=== PATIENT | male | born 1965 | race Caucasian/White ===

== ENCOUNTER 2022-08-20 13:16 | Outpatient (REF) | payer OTHER, SELFPAY ==
[2022-08-20 13:42] LABS: MANUAL DIFF FLAG NO
[2022-08-20 14:37] LABS: Basophils Absolute Auto 0.1 X10*3/uL (0.0-0.2); Basophils Percent Auto 0.7 % (0-2); Eosinophils Absolute Auto 0.4 X10*3/uL (0.0-0.4); Eosinophils Percent Auto 5.5 % (0-4); Hematocrit 41.1 % (42.0-52.0); Hemoglobin 13.9 g/dl (14.0-18.0); Imm Gran Abs Auto 0.02 X10*3/uL (0.00-0.03); Imm Gran Pct Auto 0.3 % (0.0-0.4); Lymphocytes Percent Auto 39.4 % (20-40); Mean Corpuscular HGB Conc 33.8 g/dl (31.0-36.0); Mean Corpuscular Volume 94.7 fL (80.0-98.0); Mean Platelet Volume 9.6 fL (9.4-12.4); Monocytes Absolute Auto 0.8 X10*3/uL (0.1-1.2); Monocytes Percent Auto 10.4 % (2-11); Neutrophils Absolute Auto 3.3 x10*3/uL (2.0-8.3); Neutrophils Percent Auto 43.7 % (45-73); Platelet Count 213 X10*3/uL (160-400); Red Blood Count 4.34 X10*6/uL (4.60-5.80); Red Cell Distribution Width 12.2 % (11.0-16.0); White Blood Count 7.6 X10*3/uL (4.8-10.8)
[2022-08-20 15:11] LABS: Alanine Aminotransferase 23 U/L (0-40); Albumin Level 4.5 g/dL (3.5-5.0); Alkaline Phosphatase 66 U/L (39-117); Anion Gap 16 (12-20); Aspartate Amino Transferase 27 U/L (5-37); Bilirubin Total 1.4 mg/dL (0.0-1.0); Blood Urea Nitrogen 14 mg/dL (9-16); Calcium 9.3 mg/dL (8.4-10.2); Carbon Dioxide 27 mmol/L (22-29); Chloride 99 mmol/L (96-108); Cholesterol 252 mg/dL; Estimated Glomerular Filt Rate > 60; Glucose Fasting 94 mg/dL (60-99); HDL Cholesterol 90 mg/dL; LDL Cholesterol Calculated 135 mg/dl; Potassium 4.7 mmol/L (3.3-5.1); Sodium 137 mmol/L (135-145); Total Protein 7.5 g/dL (6.5-8.0); Triglycerides 137 mg/dL
[2022-08-20 15:29] LABS: Prostate Specific Antigen Scr 0.31 ng/mL (<0.05-4.0)
== END 2022-08-20 13:17 | disposition home or self-care (01) ==
LOC: HO.LAB 13:16
PROVIDERS: PCP Internal Medicine; Visit Provider Internal Medicine
DX: Z00.00 Encounter for general adult medical examination without abnormal findings (principal); Z12.5 Encounter for screening for malignant neoplasm of prostate
CPT/HCPCS: 36415; 80053; 80061; 84153; 85025

== ENCOUNTER 2023-09-04 15:35 | Emergency (ER) | payer OTHER, SELFPAY ==
--- NOTE | ~2023-09-04 | XR_ITS ---
EXAMINATION: XR CHEST CLINICAL INFORMATION: Question pneumonia. COMPARISON: None available. TECHNIQUE: Frontal view of the chest was obtained. FINDINGS: No significant abnormality is noted involving the heart, lungs, mediastinum, bony thorax or soft tissues. XR/XR chest 1V IMPRESSION: Unremarkable examination.
[2023-09-04 15:39] VITALS: BP 155/77; PULSE 71; RESP 18; TEMP 36.4; O2SAT 99; BMI 28.8
--- NOTE | 2023-09-04 15:44 | ECG_ITS ---
Test Reason : LEFT ARM PAIN Blood Pressure : / mmHG Vent. Rate : 062 BPM Atrial Rate : 062 BPM P-R Int : 172 ms QRS Dur : 084 ms QT Int : 408 ms P-R-T Axes : 022 005 031 degrees QTc Int : 414 ms Normal sinus rhythm Normal ECG No previous ECGs available Referred By: Jet Sidhu Electronically Signed By:GHAZALA PAINTING MD
--- NOTE | 2023-09-04 15:49 | ED_ITS ---
HPI - Chest Pain General Chief Complaint: Chest Pain Stated Complaint: L arm pain/Hx of blockage in heart Time Seen by Provider: 09/04/23 21:58 Source: patient Mode of arrival: ambulatory Limitations: no limitations History of Present Illness HPI narrative: Patient with strong family history of coronary disease patient's tight at the age of 52 comes here as he saw the advertisement and got the coronary CT on 08/27 which showed high calcium score 1188. Since then patient has been having increased anxiety and left arm pain multiple times lasting only for few minutes today also while in the waiting area patient had left arm no chest pain today which did not take his aspirin today. No chest pain at this time patient initial EKG and troponin was negative Related Data Allergies Allergy/AdvReac Type Severity Reaction Status Date / Time No Known Allergies Allergy Verified 09/04/23 15:38 Review of Systems 2 Review of Systems: Yes all other systems are reviewed and are negative [facility] Social History Social History Alcohol intake: current Alcohol intake frequency: a few times a week Smoked in Last 30 Days: No Use of substances other than those prescribed or required for medical reasons: No Advance Directives: No Advance Directives Information Provided: Yes Physical Exam 2 Vital Signs: Vital Signs: Last Vital Signs Temp 97.6 F 09/04/23 21:50 Pulse 55 09/04/23 21:50 Resp 16 09/04/23 21:50 BP 155/96 H 09/04/23 21:50 Pulse Ox 100 09/04/23 21:50 O2 Del Method Room Air 09/04/23 21:50 BMI result Body Mass Index 28.8 Appearance: Alert. Oriented X3. No acute distress. Eyes: PERRLA, No Nystagmus ENT: Pharynx normal. Oral Mucosa moist Neck: Normal inspection. Neck supple. CVS: Normal heart rate and rhythm. Pulses normal. Respiratory: No respiratory distress. Equal air entry bilateral, no wheezing/rales/rhonchi Abdomen: Soft and nontender. Bowel sounds are present, no mass palpable, no CVA tenderness Skin: Skin warm and dry. Normal skin color. Normal skin turgor. Extremities: No lower extremity edema. No calf tenderness Neuro: Oriented X 3. No motor deficit. No sensory deficit.No cerebellar signs , cranial nerves II-XII intact Course Course Course Narrative: RME: 58 yold male presents to the ED for left arm pain. patient denies any chest pain or shortness of breath. Patient denies any leg swelling, calf pain, pleurisy, recent long travel, or recent surgery. Patient had evaluation of testing facility which showed high levels of calcium which puts him at risk for blockage. Patient had Heart SCan. patient presently denies no chest pain. Medications Administered Discontinued Medications Generic Name Dose Route Start Last Admin Trade Name Juan PRN Reason Stop Dose Admin Aspirin 162 mg 09/04/23 22:32 09/04/23 22:46 Aspirin Enteric Coated 81 Mg Tablet.Dr KENT 09/04/23 22:33 162 mg ONCE ONE Administration Medical Decision Making Medical Decision Making [facility] Narrative: Patient atypical chest pain with high calcium score in coronary CT , discharge patient home on aspirin 2 sets of cardiac enzymes negative for ACS advised to follow-up with records manager for further evaluation Differential Diagnosis Differential Diagnoses: The differential diagnosis associated with the presentation includes ACS/atypical chest pain Lab Data [facility] Lab Attestation statement: I reviewed the patient's lab results. 09/04/23 16:03 09/04/23 16:03 Labs: Lab Results 09/04/23 09/04/23 Range/Units 16:03 22:43 WBC 7.7 (4.8-10.8) X10*3/uL RBC 4.41 L (4.60-5.80) X10*6/uL Hgb 14.4 (14.0-18.0) g/dl Hct 42.5 (42.0-52.0) % MCV 96.4 (80.0-98.0) fL MCH 32.7 (27.0-33.0) pg MCHC 33.9 (31.0-36.0) g/dl RDW 11.7 (11.0-16.0) % Plt Count 225 (160-400) X10*3/uL MPV 9.5 (9.4-12.4) fL Immature Gran % (Auto) 0.3 (0.0-0.4) % Neut % (Auto) 56.0 (45-73) % Lymph % (Auto) 34.3 (20-40) % Murray % (Auto) 6.2 (2-11) % Eos % (Auto) 2.5 (0-4) % Baso % (Auto) 0.7 (0-2) % Lymph # (Auto) 2.6 (1.2-4.9) X10*3/uL Murray # (Auto) 0.5 (0.1-1.2) X10*3/uL Eos # (Auto) 0.2 (0.0-0.4) X10*3/uL Baso # (Auto) 0.1 (0.0-0.2) X10*3/uL Abs Immat Gran (auto) 0.02 (0.00-0.03) X10*3/uL Absolute Neuts (auto) 4.3 (2.0-8.3) x10*3/uL Absolute Nucleated RBC 0.000 (0.0-0.012) X10*3/uL Nucleated RBC % (auto) 0.0 (0.0-0.2) /100WBC PT 10.5 L (11.1-13.3) SEC INR 0.9 (0.9-1.1) APTT 34.1 (26.0-36.4) SEC Sodium 139 (135-145) mmol/L Potassium 3.7 D (3.3-5.1) mmol/L Chloride 103 (96-108) mmol/L Carbon Dioxide 25 (22-29) mmol/L Anion Gap 15 (12-20) BUN 17 H (9-16) mg/dL Creatinine 1.14 (0.5-1.4) mg/dL Estim Creat Clear Calc 71.1 Estimated GFR > 60 Random Glucose 113 (60-115) mg/dL Calcium 9.3 (8.4-10.2) mg/dL Total Bilirubin 0.9 (0.0-1.0) mg/dL AST 28 (5-37) U/L ALT 26 (0-40) U/L Alkaline Phosphatase 60 (39-117) U/L Troponin I High Sens < 2.7 < 2.7 (<3.5-35.0) ng/L B-Natriuretic Peptide 37 (<100) pg/mL Total Protein 7.7 (6.5-8.0) g/dL Albumin 4.4 (3.5-5.0) g/dL Independent Interpretation I performed an independent interpretation of an: EKG Interpretation: Normal sinus rhythm heart rate 62 beats per minute normal interval normal axis no acute ST T wave changes no acute ischemia External Record Review External record reviewed: Prior outpatient radiology Discharge Plan Discharge Clinical Impression: Chest pain Patient Disposition: Home, Self-Care Instructions: Chest Pain (ED) Additional Instructions: Follow-up with records manager/PCV further evaluation including cardiac catheterization/stress echo Start taking baby aspirin 81 mg daily Continue take her atorvastatin Report to the ER if recurrence the chest pain Referrals: Dg Garay MD [Physician] - 5 days Interventions: ED Discharge Assessment Last Done: 09/04/23 23:32 Discharge Date/Time: 09/04/23 23:32
[2023-09-04 16:08] LABS: MANUAL DIFF FLAG NO
[2023-09-04 16:09] LABS: Basophils Absolute Auto 0.1 X10*3/uL (0.0-0.2); Basophils Percent Auto 0.7 % (0-2); Eosinophils Absolute Auto 0.2 X10*3/uL (0.0-0.4); Eosinophils Percent Auto 2.5 % (0-4); Hematocrit 42.5 % (42.0-52.0); Hemoglobin 14.4 g/dl (14.0-18.0); Imm Gran Abs Auto 0.02 X10*3/uL (0.00-0.03); Imm Gran Pct Auto 0.3 % (0.0-0.4); Lymphocytes Absolute Auto 2.6 X10*3/uL (1.2-4.9); Lymphocytes Percent Auto 34.3 % (20-40); Mean Corpuscular HGB Conc 33.9 g/dl (31.0-36.0); Mean Corpuscular Hemoglobin 32.7 pg (27.0-33.0); Mean Corpuscular Volume 96.4 fL (80.0-98.0); Mean Platelet Volume 9.5 fL (9.4-12.4); Monocytes Absolute Auto 0.5 X10*3/uL (0.1-1.2); Monocytes Percent Auto 6.2 % (2-11); Neutrophils Absolute Auto 4.3 x10*3/uL (2.0-8.3); Platelet Count 225 X10*3/uL (160-400); Red Blood Count 4.41 X10*6/uL (4.60-5.80); Red Cell Distribution Width 11.7 % (11.0-16.0); White Blood Count 7.7 X10*3/uL (4.8-10.8)
[2023-09-04 16:20] LABS: INTERNATIONAL NORM RATIO 0.9 (0.9-1.1); Prothrombin Time 10.5 SEC (11.1-13.3)
[2023-09-04 16:23] LABS: Partial Thromboplastin Time 34.1 SEC (26.0-36.4)
[2023-09-04 16:29] LABS: Alanine Aminotransferase 26 U/L (0-40); Albumin Level 4.4 g/dL (3.5-5.0); Alkaline Phosphatase 60 U/L (39-117); Anion Gap 15 (12-20); Aspartate Amino Transferase 28 U/L (5-37); Bilirubin Total 0.9 mg/dL (0.0-1.0); Blood Urea Nitrogen 17 mg/dL (9-16); Calcium 9.3 mg/dL (8.4-10.2); Carbon Dioxide 25 mmol/L (22-29); Chloride 103 mmol/L (96-108); Creatinine Clr Calc Pharmacy 71.1; Estimated Glomerular Filt Rate > 60; Glucose Random 113 mg/dL (60-115); Potassium 3.7 mmol/L (3.3-5.1); Sodium 139 mmol/L (135-145); Total Protein 7.7 g/dL (6.5-8.0)
[2023-09-04 16:34] LABS: B Type Natriuretic Peptide 37 pg/mL (<100)
[2023-09-04 16:36] LABS: Troponin-I High Sensitivity < 2.7 ng/L (<3.5-35.0)
[2023-09-04 21:50] VITALS: BP 155/96; PULSE 55; RESP 16; TEMP 36.4; O2SAT 100
[2023-09-04] MEDS: Aspirin Enteric Coated 81 MG TABLET.DR 162 MG PO (22:46)
[2023-09-04 23:10] LABS: Troponin-I High Sensitivity < 2.7 ng/L (<3.5-35.0)
== END 2023-09-04 23:32 | disposition home or self-care (01) ==
PROVIDERS: Physician Assistant; Emergency Provider Internal Medicine; PCP Internal Medicine
DX: R07.89 Other chest pain (principal); M79.602 Pain in left arm; F41.9 Anxiety disorder, unspecified; R06.02 Shortness of breath; Z79.899 Other long term (current) drug therapy
CPT/HCPCS: 36415; 71045; 80053; 83880; 84484; 85025; 85610; 85730; 93005; 99283; 99285

== ENCOUNTER 2023-09-05 12:55 | Outpatient (AMB) | payer OTHER, SELFPAY ==
[2023-09-05 13:03] VITALS: BP 116/70; PULSE 65; BMI 28.5
--- NOTE | 2023-09-05 13:03 | A.OFFVIS_ITS ---
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 He was seen in the emergency room yesterday for atypical chest pain and ruled out for ACS. He was referred to Cardiology for follow-up. Today he reports much anxiety and stress over his recent finding of elevated calcium score. He had [facility] testing done when he was in [place] on 08/28/2023. He denies getting chest discomfort at rest or with exertion. No problems with shortness of breath with activity. No palpitations, presyncope, syncope, PND, orthopnea or edema. Yesterday he experienced a tightness in his mid chest. He was very anxious at that time. He said he went to the emergency room and took some deep breaths in his symptom went away. He did undergo evaluation without significant findings. He has not had that type of feeling in the past. He says he was recently started on a blood pressure medication but does not know the name of it. He would like to undergo a cardiac catheterization procedure. He says his father of an WI at age 54. He is very fearful of having this happen to himself. [facility] Medical History (Updated 09/05/23 @ 16:15 by JEMIMA FoxC) HTN (hypertension) Family History (Updated 09/05/23 @ 13:32 by JOYCE Fox) Father Heart attack Mother Stroke Social History Alcohol intake: current Alcohol intake frequency: a few times a week Review of Systems Const Details: highly anxious All systems reviewed & are unremarkable except as noted in HPI and below ENT Denies dizziness Card Reports chest pain, Denies chest pain at rest, Denies chest pain with activity, Denies rapid heart rate, Denies pedal edema, Denies edema, Denies leg edema, Denies lightheadedness, Denies palpitations, Denies dyspnea, Denies dyspnea on exertion and Denies orthopnea Resp Denies cough, Denies dyspnea and Denies dyspnea on exertion GI Denies hematochezia and Denies change in stool character Musc Denies abnormal gait, Reports limited range of motion, Reports muscle cramps, Denies muscle weakness, Denies numbness, Denies radiating pain into limb, Denies stiffness and Denies tingling Neuro Denies abnormal gait, Denies dizziness, Denies numbness and Denies tingling Endo Denies palpitations Physical Exam Vital Signs: Last Vital Signs Pulse 65 09/05/23 13:03 BP 116/70 09/05/23 13:03 BMI result Body Mass Index 28.5 Const General: cooperative, healthy appearing, comfortable and no acute distress Orientation/consciousness: patient oriented x3 Neck Neck: Yes normal visual inspection Resp Effort & Inspection: normal respiratory effort Auscultation: clear to auscultation bilaterally, no crackles, no rales, no rhonchi and no wheezes Cardio Jugular venous distension: no JVD Rate: regular rate Rhythm: regular rhythm Heart sounds: S1 normal heart sound present, S2 normal heart sound present, no murmurs and no rubs Neuro General: patient oriented x3 Extrem General: Yes normal to inspection Psych Appearance: grossly normal Mental Status: mental status grossly normal Speech and movement: Normal speech and movement present Assessment & Plan Assessment & Plan (1) High coronary artery calcium score: Code(s): R93.1 - Abnormal findings on diagnostic imaging of heart and coronary circulation Plan: Routine life lying testing done while he was in [place] on 08/28 showed calcium score total 1188, mostly in the LAD then smaller amount in the RCA and circumflex. He reports family history of early CAD with father having fail WI age 54. He also states paternal grandfather had a fatal WI in his late 40s. Other cardiac risk factors include newer diagnosis of hypertension and untreated hyperlipidemia. He currently denies exertional symptoms. He did have a nonexertional pressure in his chest yesterday that accompanied extreme anxiety. ER evaluation showed normal troponins, EKG with no acute ST or T-wave abnormalities. Spent time reviewing findings of probable coronary artery disease, signs and symptoms of angina, need for starting med management with aspirin and statin. Will start on aspirin 81 mg daily. Will start atorvastatin at 40 mg daily. Labs done 08/20/22 to showed LDL 135. He is on an antihypertensive but does not recall the name. Three attempts made to call his pharmacy and unable to get through. Blood pressure is well controlled at this time. Will order an exercise stress test to be done this week, urgency due to his anxiety levels. If he has symptoms or signs of ischemia been diagnostic cardiac catheterization will be considered. This was reviewed with him and he states understanding. Cardiology follow-up in 1 month, sooner if needed. (2) Chest discomfort: Code(s): R07.89 - Other chest pain Plan: One episode yesterday that he says was relieved with taking some deep breaths in and relaxing (3) HTN (hypertension): Code(s): I10 - Essential (primary) hypertension Qualifiers: Hypertension type: primary hypertension Qualified Code(s): I10 - Essential (primary) hypertension Plan: As above (4) Hyperlipidemia: Code(s): E78.5 - Hyperlipidemia, unspecified Qualifiers: Hyperlipidemia type: pure hypercholesterolemia Qualified Code(s): E78.00 - Pure hypercholesterolemia, unspecified Plan: As above. Starting atorvastatin. Will plan for fasting lipids in 2-3 months Orders: Orders CA stress test Today R07.89 - Other chest pain, R93.1 - Abnormal findings on diagnostic imaging of heart and coronary circulation Medications: New atorvastatin 40 mg PO BEDTIME 30 tabs 5RF aspirin 81 mg PO DAILY Coding Level of Care Code New Pt Level 4 (76794) Diagnoses High coronary artery calcium score R93.1 Chest discomfort R07.89 Primary hypertension I10 Hypertension type: primary hypertension Pure hypercholesterolemia E78.00 Hyperlipidemia type: pure hypercholesterolemia Time Spent (min) 35
== END 2023-09-05 14:07 | disposition home or self-care (01) ==
PROVIDERS: PCP Internal Medicine; Visit Provider Nurse Practitioner Family
DX: R93.1 Abnormal findings on diagnostic imaging of heart and coronary circulation (principal); R07.89 Other chest pain; I10 Essential (primary) hypertension; E78.00 Pure hypercholesterolemia, unspecified
CPT/HCPCS: 99204

== ENCOUNTER → 2023-09-05 12:55 | Outpatient (BNVA) | payer OTHER, SELFPAY | PROVIDERS: PCP Internal Medicine; Visit Provider Nurse Practitioner Family ==

== ENCOUNTER → 2023-09-06 08:49 | Outpatient (REF) | payer OTHER, SELFPAY ==
--- NOTE | 2023-09-06 08:54 | CA_ITS ---
Acquisition Time: 2023-09-06 09:32:38 Total Exercise Time: 00:10:02 Test Indications: CP Medications: SEE H Protocol: ANGELA Max HR: 141 BPM 88% of Pred: 160 BPM Max BP: 196/070 mmHG Max Work Load: 11.8 METS Exercise stress test exercise 10 min 2 sec of Angela protocol achieving 88% MPHR, without anginal symptoms, without arrhythmias, with normotensive response to exercise, with t wave inversion aVL. Test reviewed with Dr. Traylor. Referred By: Winsome Pillai Overread By: Kristel Joya
== END ==
LOC: HO.CARD 08:49
PROVIDERS: PCP Internal Medicine; Visit Provider Nurse Practitioner Family
DX: R07.89 Other chest pain (principal); R93.1 Abnormal findings on diagnostic imaging of heart and coronary circulation
CPT/HCPCS: 93017

== ENCOUNTER → 2023-09-06 08:54 | Outpatient (BNV) | payer OTHER, SELFPAY | PROVIDERS: PCP Internal Medicine; Visit Provider Nurse Practitioner | DX: R07.9 Chest pain, unspecified (principal) | CPT/HCPCS: 93016; 93018 ==

== ENCOUNTER → 2023-09-29 23:59 | Outpatient (BNV) | payer OTHER, SELFPAY | PROVIDERS: PCP Internal Medicine; Visit Provider Internal Medicine Cardiovascular Disease | DX: R07.9 Chest pain, unspecified (principal); I25.10 Atherosclerotic heart disease of native coronary artery without angina pectoris | CPT/HCPCS: 92928; 93458; 93571; 99152 ==

== ENCOUNTER 2023-10-04 09:32 | Outpatient (REF) | payer OTHER, SELFPAY ==
[2023-10-04 10:16] LABS: MANUAL DIFF FLAG NO
[2023-10-04 10:47] LABS: Basophils Absolute Auto 0.1 X10*3/uL (0.0-0.2); Basophils Percent Auto 0.8 % (0-2); Eosinophils Absolute Auto 0.3 X10*3/uL (0.0-0.4); Eosinophils Percent Auto 4.2 % (0-4); Hematocrit 41.5 % (42.0-52.0); Imm Gran Abs Auto 0.02 X10*3/uL (0.00-0.03); Imm Gran Pct Auto 0.3 % (0.0-0.4); Lymphocytes Absolute Auto 2.3 X10*3/uL (1.2-4.9); Lymphocytes Percent Auto 35.1 % (20-40); Mean Corpuscular HGB Conc 36.1 g/dl (31.0-36.0); Mean Corpuscular Hemoglobin 32.9 pg (27.0-33.0); Mean Platelet Volume 9.2 fL (9.4-12.4); Monocytes Absolute Auto 0.6 X10*3/uL (0.1-1.2); Monocytes Percent Auto 9.1 % (2-11); Neutrophils Absolute Auto 3.3 x10*3/uL (2.0-8.3); Neutrophils Percent Auto 50.5 % (45-73); Platelet Count 218 X10*3/uL (160-400); Red Blood Count 4.56 X10*6/uL (4.60-5.80); Red Cell Distribution Width 11.9 % (11.0-16.0); White Blood Count 6.5 X10*3/uL (4.8-10.8)
[2023-10-04 10:52] LABS: INTERNATIONAL NORM RATIO 0.9 (0.9-1.1); Prothrombin Time 10.8 SEC (11.1-13.3)
[2023-10-04 11:18] LABS: Anion Gap 13 (12-20); Blood Urea Nitrogen 14 mg/dL (9-16); Calcium 9.5 mg/dL (8.4-10.2); Carbon Dioxide 26 mmol/L (22-29); Chloride 103 mmol/L (96-108); Estimated Glomerular Filt Rate > 60; Glucose Random 85 mg/dL (60-115); Potassium 4.2 mmol/L (3.3-5.1); Sodium 138 mmol/L (135-145)
== END 2023-10-04 09:33 | disposition home or self-care (01) ==
LOC: HO.LAB 09:32
PROVIDERS: Visit Provider Nurse Practitioner Family
DX: Z01.812 Encounter for preprocedural laboratory examination (principal)
CPT/HCPCS: 36415; 80048; 85025; 85610

== ENCOUNTER 2023-10-06 07:42 | Outpatient (AMB) | payer OTHER, SELFPAY ==
[2023-10-06 08:17] VITALS: BP 120/72; PULSE 70; BMI 28.2
--- NOTE | 2023-10-06 08:17 | A.OFFVIS_ITS ---
Intake Vital Signs 10/06/23 08:17 Height 5 ft 7 in Weight 180 lb 5.41 oz BMI 28.2 BP 120/72 Blood Pressure Location Lt brachial Position Sitting Pulse 70 Pulse Source Pulse Oximeter Intake Visit Reasons: Follow up post cardiac cath [employer] Room Operator Required: No Allergies No Known Allergies Allergy (Verified 10/06/23 08:20) Medication List - Last Reconciled 10/06/23 by JEMIMA FoxC aspirin 81 mg PO DAILY atorvastatin 40 mg PO BEDTIME levetiracetam 1,000 mg PO BID ticagrelor (Brilinta) 90 mg PO BID 90 days HPI Follow up post cardiac cath HPI Details Donald is a 58 year old male with past medical history newer hypertension, hyperlipidemia who recently had a calcium score done through [facility] which was elevated, who was evaluated with ETT, then cardiac cath showing 85% mid LAD stenosis and stent was placed. He now presents for follow up. Today he states he is feeling much better overall. He tells me that his breathing feels wide open. He was not noticing shortness of breath prior to the coronary stent but now states his breathing is even better than had been. No chest discomfort at rest or with activity. No heart palpitations, presyncope, syncope, PND, orthopnea or edema. Has some resolving bruising at right radial catheterization site. Has been working without restrictions. Tells me he is going to cut back on the very heavy lifting. Declines cardiac rehab. Taking all meds as directed. [facility] Medical History (Updated 10/06/23 @ 08:43 by JOYCE Fox) CAD (coronary artery disease) HTN (hypertension) Family History Father Heart attack Mother Stroke Social History Alcohol intake: current Alcohol intake frequency: a few times a week Review of Systems Const All systems reviewed & are unremarkable except as noted in HPI and below ENT Denies dizziness Card Denies chest pain, Denies chest pain at rest, Denies chest pain with activity, Denies rapid heart rate, Denies pedal edema, Denies edema, Denies leg edema, Denies lightheadedness, Denies palpitations, Denies dyspnea, Denies dyspnea on exertion and Denies orthopnea Resp Denies cough, Denies dyspnea and Denies dyspnea on exertion GI Denies hematochezia and Denies change in stool character Musc Denies abnormal gait, Denies limited range of motion, Denies muscle cramps, Denies muscle weakness, Denies numbness, Denies radiating pain into limb, Denies stiffness and Denies tingling Neuro Denies abnormal gait, Denies dizziness, Denies numbness and Denies tingling Endo Denies palpitations Physical Exam Vital Signs: Last Vital Signs Pulse 70 10/06/23 08:17 BP 120/72 10/06/23 08:17 BMI result Body Mass Index 28.2 Const General: cooperative, healthy appearing, comfortable and no acute distress Orientation/consciousness: patient oriented x3 Neck Neck: Yes normal visual inspection Resp Effort & Inspection: normal respiratory effort Auscultation: clear to auscultation bilaterally, crackles, no rales, no rhonchi and no wheezes Cardio Jugular venous distension: no JVD Rate: regular rate Rhythm: regular rhythm Heart sounds: S1 normal heart sound present, S2 normal heart sound present, no murmurs and no rubs Neuro General: patient oriented x3 Extrem Other: Right radial catheterization site with resolving ecchymosis, easily palpable radial pulse, hand assessment normal General: Yes normal to inspection Psych Appearance: grossly normal Mental Status: mental status grossly normal Speech and movement: Normal speech and movement present Assessment & Plan Assessment & Plan (1) High coronary artery calcium score: Code(s): R93.1 - Abnormal findings on diagnostic imaging of heart and coronary circulation Plan: Routine life lying testing done while he was in [place] on 08/28 showed calcium score total 1188, mostly in the LAD then smaller amount in the RCA and circumflex. He reports family history of early CAD with father having fail DC age 54. He also states paternal grandfather had a fatal DC in his late 40s. Other cardiac risk factors include newer diagnosis of hypertension and untreated hyperlipidemia. Reported atypical sounding chest discomfort. An exercise stress test was done on 09/06/23 with exercise 10 minutes, no clear anginal symptoms, no EKG changes. He continued to report atypical chest discomfort and underwent cardiac catheterization on 09/29/2023 showing 85% mid LAD stenosis, IFR 0.84, JASON was placed. He also has nonobstructive RCA stenosis. Today he reports he is feeling much better overall. He says his breathing has improved. No recent atypical chest discomfort. Right radial catheterization site healing well. Catheterization report reviewed with him in detail. Signs and symptoms of angina reviewed. He declines cardiac rehab. Continue aspirin indefinitely. Continue Brilinta uninterrupted for at least 1 year. Continue moderate dose statin. Fasting lipid profile prior to next visit. Cardiology follow-up in 3 months, sooner if needed. (2) CAD (coronary artery disease): Code(s): I25.10 - Atherosclerotic heart disease of [place] coronary artery without angina pectoris Qualifiers: Associated angina: without angina Coronary Disease-Associated Artery/Lesion type: [place] artery [place] vs. transplanted heart: [place] heart Qualified Code(s): I25.10 - Atherosclerotic heart disease of [place] coronary artery without angina pectoris Plan: As above (3) S/P cardiac cath: Comment: 09/29/2023 left main normal, lad mid 85% stenosis, JASON placed, left circumflex less than 30% stenosis, RCA 40-50% stenosis Code(s): Z98.890 - Other specified postprocedural states (4) HTN (hypertension): Code(s): I10 - Essential (primary) hypertension Qualifiers: Hypertension type: primary hypertension Qualified Code(s): I10 - Essential (primary) hypertension Plan: Well controlled, normal range at this time (5) Hyperlipidemia: Code(s): E78.5 - Hyperlipidemia, unspecified Qualifiers: Hyperlipidemia type: pure hypercholesterolemia Qualified Code(s): E78.00 - Pure hypercholesterolemia, unspecified Plan: [place] LDL goal less than 70 in patient with CAD. Continue moderate dose statin. Fasting lipids due in about 2 months. Orders: Orders Lipid Panel 2 Months R93.1 - Abnormal findings on diagnostic imaging of heart and coronary circulation Coding Level of Care Code Est Pt Level 3 (57177) Diagnoses High coronary artery calcium score R93.1 Coronary artery disease involving [place] coronary artery of [place] heart without angina pectoris I25.10 Associated angina: without angina Coronary Disease-Associated Artery/Lesion type: [place] artery [place] vs. transplanted heart: [place] heart S/P cardiac cath Z98.890 Primary hypertension I10 Hypertension type: primary hypertension Pure hypercholesterolemia E78.00 Hyperlipidemia type: pure hypercholesterolemia Time Spent (min) 24
== END 2023-10-06 08:47 | disposition home or self-care (01) ==
PROVIDERS: PCP Internal Medicine; Visit Provider Nurse Practitioner Family
DX: R93.1 Abnormal findings on diagnostic imaging of heart and coronary circulation (principal); I25.10 Atherosclerotic heart disease of native coronary artery without angina pectoris; Z98.890 Other specified postprocedural states; I10 Essential (primary) hypertension; E78.00 Pure hypercholesterolemia, unspecified
CPT/HCPCS: 99213

== ENCOUNTER → 2023-10-06 07:42 | Outpatient (BNVA) | payer OTHER, SELFPAY | PROVIDERS: PCP Internal Medicine; Visit Provider Nurse Practitioner Family | DX: R93.1 Abnormal findings on diagnostic imaging of heart and coronary circulation (principal); I25.10 Atherosclerotic heart disease of native coronary artery without angina pectoris; I10 Essential (primary) hypertension; E78.00 Pure hypercholesterolemia, unspecified; Z98.890 Other specified postprocedural states | CPT/HCPCS: 99212 ==